=== PATIENT | male | born 1985 | race Caucasian/White ===

== ENCOUNTER 2021-03-04 11:48 | Emergency (ER) | payer OTHER ==
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
[2021-03-04 13:11] VITALS: BP 121/74; TEMP 98.6; O2SAT 96
== END 2021-03-04 12:55 | disposition home or self-care (01) ==
LOC: ER 11:48
DX: H16.133 Photokeratitis, bilateral (principal); F17.210 Nicotine dependence, cigarettes, uncomplicated
CPT/HCPCS: 99281